=== PATIENT | female | born 1970 | race Two or more races ===

== ENCOUNTER 2017-09-25 10:05 | Emergency (ER) | payer SELFPAY ==
[2017-09-25] MEDS ORDERED: HYDROMORPHONE HCL 2 MG/ML SOL IV ONE ×2 (10:14→11:39)
[2017-09-25] MEDS ORDERED: ONDANSETRON HCL 4 MG/2 ML SOL IV ONE (10:14)
[2017-09-25] MEDS ORDERED: ONDANSETRON HCL 4 MG/2 ML SOL ONE (10:16)
[2017-09-25] MEDS ORDERED: HYDROMORPHONE HCL 2 MG/ML SOL ONE ×2 (10:16→11:40)
[2017-09-25] MEDS: SODIUM CHLORIDE 0.9% FLUSH 10 ML SOL IV PRN ×3 (10:20→11:42)
[2017-09-25] MEDS ORDERED: PROMETHAZINE HYDROCHLORIDE 25 MG/ML SOL IV ONE (10:41)
[2017-09-25] MEDS ORDERED: PROMETHAZINE HYDROCHLORIDE 25 MG/ML SOL ONE (10:42)
[2017-09-25] MEDS ORDERED: APAP/OXYCODONE 325/5 TAB PO ONE (12:18)
[2017-09-25] MEDS ORDERED: APAP/OXYCODONE 325/5 TAB ONE (12:19)
[2017-09-25 14:40] VITALS: BP 131/82; PULSE 109; RESP 20; TEMP 99; O2SAT 97
== END 2017-09-25 14:25 | disposition home or self-care (01) | DRG 563 ==
LOC: ED 10:05
DX: S82.841A Displaced bimalleolar fracture of right lower leg, initial encounter for closed fracture (principal); S93.421A Sprain of deltoid ligament of right ankle, initial encounter; W00.0XXA Fall on same level due to ice and snow, initial encounter
CPT/HCPCS: 73600; 99285; J1170; J2405; J2550; A9270-GY; J2704

== ENCOUNTER 2017-09-27 10:02 | Emergency (ER) | payer MEDICAID ==
[2017-09-27 10:29] VITALS: RESP 18; TEMP 97.3; O2SAT 99
[2017-09-27] MEDS ORDERED: KETOROLAC TROMETHAMINE 30 MG/ML SOL ONE (11:10)
[2017-09-27] MEDS ORDERED: KETOROLAC TROMETHAMINE 30 MG/ML SOL IM ONE (11:16)
[2017-09-27] MEDS ORDERED: HYDROMORPHONE HCL 2 MG/ML SOL IM ONE (12:03)
[2017-09-27] MEDS ORDERED: ONDANSETRON HCL 4 MG/2 ML SOL IM ONE (12:03)
[2017-09-27] MEDS ORDERED: HYDROMORPHONE 1 MG/ML SYRINGE ONE (12:08)
[2017-09-27] MEDS ORDERED: ONDANSETRON HCL 4 MG/2 ML SOL ONE (12:08)
[2017-09-27 13:15] VITALS: BP 124/65; PULSE 65
== END 2017-09-27 12:45 | disposition home or self-care (01) | DRG 561 ==
LOC: ED 10:02
DX: S82.201D Unspecified fracture of shaft of right tibia, subsequent encounter for closed fracture with routine healing (principal); S82.401D Unspecified fracture of shaft of right fibula, subsequent encounter for closed fracture with routine healing
CPT/HCPCS: 96372; 99282; 99283; J1885; J2405; J1170